=== PATIENT | male | born 1950 | race Hispanic/Latino ===

== ENCOUNTER 2024-01-07 19:45 | Inpatient (IN) | payer MEDICARE ==
[~2024-01-07] VITALS: Ht 172.7 cm; Wt 64.9 kg
[2024-01-07 21:04] VITALS: TEMP 98.6
[2024-01-07 21:37] LABS: BASOPHILS % 0.5 % (0.0-1.0); EOSINOPHILS # (AUTO) 0.3 (0.0-0.4); HEMOGLOBIN 16.6 g/dL (14.0-18.0); LYMPHOCYTES # (AUTO) 2.5 (1.0-3.2); LYMPHOCYTES % 34.7 % (18.0-39.1); MEAN CORPUSCULAR HEMOGLOBIN 32.4 pg (28-32); MEAN CORPUSCULAR HGB CONC 33.2 g/dL (31-35); MEAN CORPUSCULAR VOLUME 97.5 fL (81-99); MONOCYTES # (AUTO) 0.8 (0.2-0.8); MONOCYTES % 11.1 % (4.4-11.3); NEUTROPHILS # (AUTO) 3.6 (2.1-6.9); NEUTROPHILS % 48.7 % (38.7-80.0); PLATELET COUNT 215 x10e3/uL (140-360); RED BLOOD COUNT 5.13 x10e6/uL (4.3-5.7); RED CELL DISTRIBUTION WIDTH 12.6 % (11.7-14.4); WHITE BLOOD COUNT 7.31 x10e3/uL (4.8-10.8)
[2024-01-07] MEDS ORDERED: SODIUM CHLORIDE 0.9% 100 ML ONE (21:50)
[2024-01-07] MEDS ORDERED: IOPAMIDOL 370 MG/ML 100 ML INFUS..BTL INJ ONE (21:50)
[2024-01-07 21:53] LABS: ALBUMIN/GLOBULIN RATIO 1.1 (0.8-2.0); BILIRUBIN,TOTAL 0.4 mg/dL (0.2-1.2); CREATININE, SERUM 0.83 mg/dL (0.72-1.25); TOTAL PROTEIN 7.6 g/dL (6.5-8.1)
[2024-01-07 21:58] LABS: TROPONIN I 0.005 ng/mL (0-0.300)
[2024-01-07] MEDS: ASPIRIN 81 MG CHEW TAB PO ONE (22:03)
[2024-01-07 22:08] VITALS: PULSE 72; RESP 23
[2024-01-07] MEDS: SODIUM CHLORIDE 0.9% 1000ML 1,000 ML IV SCH (23:12)
[2024-01-07 23:25] VITALS: BP 142/72; PULSE 76; RESP 18; TEMP 98.2; O2SAT 98
[2024-01-08] VITALS (8 sets, daily range): BP systolic 95–127; BP diastolic 55–69; PULSE 61–73; RESP 17–18; TEMP 97.9–98.3; O2SAT 95–100
[2024-01-08 05:29] LABS: BASOPHILS % 0.5 % (0.0-1.0); EOSINOPHILS # (AUTO) 0.3 (0.0-0.4); EOSINOPHILS % 5.1 % (0.0-6.0); HEMOGLOBIN 15.2 g/dL (14.0-18.0); LYMPHOCYTES # (AUTO) 2.3 (1.0-3.2); MEAN CORPUSCULAR HEMOGLOBIN 32.1 pg (28-32); MEAN CORPUSCULAR HGB CONC 32.3 g/dL (31-35); MEAN CORPUSCULAR VOLUME 99.2 fL (81-99); MONOCYTES # (AUTO) 0.6 (0.2-0.8); MONOCYTES % 10.1 % (4.4-11.3); NEUTROPHILS # (AUTO) 2.9 (2.1-6.9); NEUTROPHILS % 46.6 % (38.7-80.0); PLATELET COUNT 186 x10e3/uL (140-360); RED BLOOD COUNT 4.74 x10e6/uL (4.3-5.7); RED CELL DISTRIBUTION WIDTH 12.3 % (11.7-14.4); WHITE BLOOD COUNT 6.13 x10e3/uL (4.8-10.8)
[2024-01-08 05:53] LABS: ALBUMIN 3.3 g/dL (3.5-5.0); ALBUMIN/GLOBULIN RATIO 1.1 (0.8-2.0); ANION GAP 10.8 mmol/L (8-16); BILIRUBIN,TOTAL 0.6 mg/dL (0.2-1.2); CALCIUM 8.7 mg/dL (8.4-10.2); CREATININE, SERUM 0.73 mg/dL (0.72-1.25); POTASSIUM 3.8 mmol/L (3.5-5.1); TOTAL PROTEIN 6.3 g/dL (6.5-8.1)
[2024-01-08 06:21] LABS: TROPONIN I 0.007 ng/mL (0-0.300)
[2024-01-08] MEDS ORDERED: ACETAMINOPHEN 325 MG TAB PO PRN (10:45)
[2024-01-08] MEDS ORDERED: ONDANSETRON HCL INJ 2MG/ML 2ML 2 MG/ML VIAL IV PRN (10:45)
[2024-01-08 10:58] LABS: CHOL/HDL RATIO 5.5 (3.9-4.7)
[2024-01-08] MEDS: ASPIRIN 81 MG CHEW TAB PO SCH (12:02)
[2024-01-08 14:55] LABS: TROPONIN I 0.005 ng/mL (0-0.300)
[2024-01-09] VITALS (7 sets, daily range): BP systolic 103–119; BP diastolic 60–67; PULSE 62–69; RESP 17–20; TEMP 97.9–98.6; O2SAT 95–99
[2024-01-09] MEDS ORDERED: ASPIRIN CHEW81 MG PO (15:46)
[2024-01-09] MEDS ORDERED: ATORVASTATIN CA20 MG PO (15:46)
[2024-01-09] MEDS ORDERED: ATORVASTATIN 20 MG TAB PO SCH (21:00)
== END 2024-01-09 17:41 | disposition home or self-care (01) | DRG 92 ==
LOC: ER 19:45 → ERHOLD 22:26 → MED/SURG 23:09
PROVIDERS: ADMIT Internal Medicine; ATTEND Internal Medicine
DX: R47.01 Aphasia (principal); G45.9 Transient cerebral ischemic attack, unspecified; I82.B12 Acute embolism and thrombosis of left subclavian vein; I25.10 Atherosclerotic heart disease of native coronary artery without angina pectoris; I44.7 Left bundle-branch block, unspecified; R29.701 NIHSS score 1; Z86.73 Personal history of transient ischemic attack (TIA), and cerebral infarction without residual deficits; F17.210 Nicotine dependence, cigarettes, uncomplicated
CPT/HCPCS: 36415; 70496; 70498; 70551; 80053; 80061; 80320; 82550; 83036; 84484; 85025; 87420; 93005; 93306; 93880; 95819; 99252; 99284; J7030; J7050; Q9967